=== PATIENT | male | born 1970 | race American Indian/Alaskan Native ===

== ENCOUNTER 2021-02-08 06:00 | Day surgery (SDC) | payer OTHER ==
[2021-02-08] MEDS ORDERED: LACTATED RINGERS 1,000 ML IV SCH (06:30)
[2021-02-08] MEDS ORDERED: ceFAZolin/STERILE WATER 2 GM/20 ML SYRINGE IV NR (06:33)
[2021-02-08] MEDS ORDERED: BACTERIOSTATIC SODIUM CHLORIDE 0.9% 30 ML VIAL INFILTRATI ONE (06:35)
[2021-02-08] MEDS ORDERED: MIDAZOLAM 2 MG/2 ML INJ IV ONE (06:38)
--- NOTE | 2021-02-08 07:07 | Anesthesia Consultation ---
Anesthesia Consult and Med Hx Date of service: 02/08/21 - Airway Anesthetic Teeth Evaluation: Good ROM Head & Neck: Adequate Mental/Hyoid Distance: Adequate Mallampati Class: Class II Intubation Access Assessment: Good - Pulmonary Exam CTA: Yes - Cardiac Exam Cardiac Exam: RRR - Pre-Operative Health Status ASA Pre-Surgery Classification: ASA2 Proposed Anesthetic Plan: General - Pulmonary Hx Smoking: No Hx Sleep Apnea: Yes (DX SLEEP APNEA WITH CPAP USE) - Cardiovascular System Hx Hypertension: Yes - Central Nervous System Hx Psychiatric Problems: No - Hematic Hx Anemia: No Hx Sickle Cell Disease: No - Other Systems Hx Alcohol Use: Yes (OCC.) Hx Substance Use: No Hx Cancer: No
--- NOTE | 2021-02-08 07:08 | Anesthesia Day of Surgery ---
Anesthesia Day of Surgery - Day of Surgery Patient Examined: Yes Patient H&P Reviewed: Yes Patient is NPO: Yes
[2021-02-08] MEDS ORDERED: propofoL 200 MG/20 ML VIAL IV ONE (07:11)
[2021-02-08] MEDS ORDERED: LIDOCAINE MPF (2%) 20 MG/1 ML VIAL 5 ML ONE (07:11)
[2021-02-08] MEDS ORDERED: HYDROmorphone 1 MG/1 ML INJ ONE (07:11)
[2021-02-08] MEDS ORDERED: WATER FOR IRRIG STERILE 2000 ML IR ONE (07:16)
[2021-02-08] MEDS ORDERED: WATER FOR IRRIG STERILE 1,500 ML BOTTLE IR ONE (07:17)
[2021-02-08] MEDS ORDERED: KETOROLAC 30 MG/1 ML INJ ONE (08:32)
[2021-02-08] MEDS ORDERED: ONDANSETRON 4 MG/2 ML INJ ONE (08:32)
--- NOTE | 2021-02-08 08:42 | Short Stay Summary ---
Short Stay Documentation Date of service: 02/08/21 - History H&P: obtained from office - Allergies and Medications Current Medications: Allergies No Known Allergies Allergy (Verified 01/30/21 16:00) Home Medications Medication Instructions Recorded Confirmed Last Taken Type Calcium/Magnesium/Zinc 1 each PO DAILY 01/27/21 01/27/21 Unknown History [Ajqpgbs-Guezzkkep-Dgzp Tablet] Metamucil Powder 1 scoop PO CONT 01/27/21 01/27/21 Unknown History Multivit-Min/FA/Lycopen/Lutein 1 each PO DAILY 01/27/21 01/27/21 Unknown History [Centrum Silver Men Tablet] Vitamin D3 1 cap PO DAILY 01/27/21 01/27/21 Unknown History amLODIPine [Norvasc] 5 mg PO DAILY 01/27/21 01/27/21 Unknown History Active Medications Cefazolin Sodium (Cefazolin/Sterile Water 2 Gm/20 Ml Syringe) 2 gm IV PREOP NR Stop: 02/08/21 23:59 Lactated Ringer's (Lactated Ringers) 1,000 mls @ 100 mls/hr IV DIRECT ALBERT Last Admin: 02/08/21 07:10 Dose: 100 mls/hr Documented by: - Brief post op/procedure progress note Date of procedure: 02/08/21 Pre-op diagnosis: rt ureteral stone Post-op diagnosis: same Procedure: cysto, rpg, rt ureteroscopy basket stone, stent with external string Anesthesia: GETA Surgeon: CINTHIA MCCRARY Estimated blood loss: none Pathology: none Condition: stable - Disposition Condition at discharge: Stable Disposition: DC-01 TO HOME OR SELFCARE Short Stay Discharge Plan Follow up with: IVORY ALMODOVAR MD [Primary Care Provider] - 7 Days
--- NOTE | 2021-02-08 09:00 | Operative Report ---
DATE OF SURGERY: 02/08/2021 PREOPERATIVE DIAGNOSIS: Right ureteral stone. POSTOPERATIVE DIAGNOSIS: Right ureteral stone. PROCEDURES: Cystoscopy, bilateral retrograde pyelograms, right ureteroscopy, basket stone extraction, double-J stent placement (6-Sammarinese 26 cm with an external string). SURGEON: Jaswant Calderon MD ANESTHESIA: General. ESTIMATED BLOOD LOSS: Minimal. FLUIDS: Crystalloid. COMPLICATIONS: No complications. INDICATIONS: This 50-year-old gentleman seen by Dr. Irby, his primary care was found to have right flank pain. CT of abdomen and pelvis revealed a 5 mm distal stone. He tried conservative management; however, his pain persist. He presents now for surgical intervention. Risks, benefits, and complications were explained. DESCRIPTION OF PROCEDURE: The patient was taken to the operative suite, placed in a supine position. After adequate general anesthesia, placed in the dorsal lithotomy position, prepped and draped in a sterile fashion. Pancystourethroscopy was performed with a 22-Sammarinese Storz cystoscope. No urethral abnormalities. His prostate was minimally obstructing. Bladder, no tumors were noted. Left ureteral orifice was normal. You could see the stone bulging from the right ureteral orifice. Left retrograde pyelogram was obtained with an 8-Sammarinese Canadian catheter and 8 mL of contrast. No filling defects or obstruction. Right side retrograde could see obvious filling defect in the distal ureter, 2.035 Glidewires were placed. Rigid ureteroscopy was performed. The stone was engaged with a 3-Sammarinese Mamie basket and extracted, it will be given to the patient. Ureteroscopy up to the renal pelvis. No other stones could be appreciated. A 6-Sammarinese 26 cm double-J stent was placed under fluoroscopic guidance with an external string that was taped to the penis. Bladder was drained. Rectal exam was benign. He was extubated and taken to recovery room. He will go home on Bactrim and Arthur and follow up in the office. TID: [id number] RECEIPT: [id number] [facility]
--- NOTE | 2021-02-08 09:18 | Fluoroscopy Report ---
Fluoroscopy retrograde urography HISTORY: Right flank pain, calculus COMPARISON: None. FINDINGS: 1.4 minutes of fluoroscopy time was provided by radiology during retrograde urography by ur ology. 11 fluoroscopic images are presented. The left retrograde pyelogram is within normal limits. A filling defect is identified in the mid to distal right ureter consistent with an obstructing stone. Subsequent images demonstrate right ureteroscopy and placement of a right ureteral stent. Please cor relate with the procedural report. Signer Name: Kaushik Gusman Jr, MD Signed: 02/08/2021 9:14 AM Workstation Name: [id number]
[2021-02-08 10:41] VITALS: BP 142/90
--- NOTE | 2021-02-08 15:11 | Post Anesthesia Evaluation ---
- Post Anesthesia Evaluation Patient Participated: Yes Airway Patent: Yes Stable Respiratory Function: Yes Nausea/Vomiting: No Temp > 96.8F: Yes Pain Manageable: Yes Adequeate Hydration: Yes Anesthesia Complications: No Block Receding Appropriately: Not Applicable Patient on Ventilator: No
== END 2021-02-08 10:30 | disposition home or self-care (01) ==
LOC: OR 06:00
PROVIDERS: ATTEND Urology
DX: N20.1 Calculus of ureter (principal); I10 Essential (primary) hypertension; E78.00 Pure hypercholesterolemia, unspecified; G47.30 Sleep apnea, unspecified; Z79.899 Other long term (current) drug therapy; Z98.890 Other specified postprocedural states; Z72.89 Other problems related to lifestyle
CPT/HCPCS: 52332; 52352; 74420; A4217; C1758; C1769; C2617; J0690; J1170; J1885; J2250; J2405; J2704; J7120; Q9967

== ENCOUNTER 2021-03-13 13:21 | Outpatient (CLI) | payer OTHER | END 2021-03-13 13:22 | disposition home or self-care (01) | LOC: LABHHL 13:21 | PROVIDERS: ATTEND Otolaryngology Sleep Medicine | DX: J34.2 Deviated nasal septum (principal); J34.3 Hypertrophy of nasal turbinates | CPT/HCPCS: 88304 ==